=== PATIENT | female | born 2000 | race African-American/Black ===

== ENCOUNTER 2024-02-13 23:30 | Emergency (ER) | payer OTHER ==
[~2024-02-13] VITALS: Ht 154.9 cm; Wt 65.9 kg
[2024-02-13 23:32] VITALS: TEMP 99.7
[2024-02-13] MEDS ORDERED: ALBU18HF12 IH (23:36)
[2024-02-14] MEDS: IBUPROFEN 600 MG TABLET PO ONE (00:22)
[2024-02-14] MEDS: METHOCARBAMOL 500 MG TABLET PO ONE (00:23)
[2024-02-14] MEDS: LIDOCAINE 5% TRANSDERMAL PATCH TD ONE (00:23)
[2024-02-14 00:28] VITALS: BP 125/83; PULSE 106; RESP 20; O2SAT 99
[2024-02-14] MEDS ORDERED: IBUP-1492 PO (00:52)
[2024-02-14] MEDS ORDERED: LIDO700A15 TP (00:53)
[2024-02-14] MEDS ORDERED: METH-659 PO (00:53)
== END 2024-02-14 01:25 | disposition home or self-care (01) ==
LOC: EMS 23:32
DX: S29.012A Strain of muscle and tendon of back wall of thorax, initial encounter (principal); R07.89 Other chest pain; J45.909 Unspecified asthma, uncomplicated; X58.XXXA Exposure to other specified factors, initial encounter; Y93.89 Activity, other specified; Y92.89 Other specified places as the place of occurrence of the external cause; Y99.8 Other external cause status
CPT/HCPCS: 71045; 99284